=== PATIENT | male | born 1950 | race Caucasian/White ===

== ENCOUNTER 2018-08-16 18:58 | Emergency (ER) | payer MEDICARE, OTHER ==
[~2018-08-16] VITALS: Ht 172.7 cm; Wt 93.0 kg
[2018-08-16] MEDS ORDERED: AUGMENTIN875TAB PO (20:13)
[2018-08-16 20:30] VITALS: BP 134/78
== END 2018-08-16 20:30 | disposition home or self-care (01) ==
LOC: ED 18:58
DX: L03.032 Cellulitis of left toe (principal); S91.202A Unspecified open wound of left great toe with damage to nail, initial encounter

== ENCOUNTER 2022-05-16 16:32 | Observation (INO) | payer MEDICARE, OTHER ==
[2022-05-16] VITALS (20 sets, daily range): BP systolic 100–132; BP diastolic 54–91
[~2022-05-16] VITALS: Ht 172.7 cm; Wt 75.0 kg
[~2022-05-16 16:32] MED LIST: AUGMENTIN875TAB PO
[2022-05-16 17:15] LABS: HEMATOCRIT 46.3 % (39.0-50.0); IMMATURE GRANULOCYTES 0.3 % (0.0-5.0); MEAN CORPUSCULAR HGB 32.7 pG CALC (26.0-32.0); MEAN CORPUSCULAR HGB CONC 36.7 g/dL CAL (32.0-36.0); NEUT# 6.95 thou/uL (1.82-7.42); RED BLOOD COUNT 5.2 mill/uL (4.70-6.10); RED CELL DISTRI WIDTH 11.7 % (11.5-15.5)
[2022-05-16 17:39] LABS: ALBUMIN 4.6 g/dL (3.2-5.0); ALKALINE PHOSPHATASE 81 u/l (38-126); BILIRUBIN, TOTAL 1.2 mg/dL (0.0-1.4); BUN 24 mg/dL (8-23); BUN/CREATININE RATIO 23 (12-20 (CALC)); CARBON DIOXIDE 24 mmol/l (22-30); CREATININE 1.1 mg/dL (0.7-1.3); GFR FOR AFR.AMER. > 60 ML/MIN (>=60 (CALC)); GFR OTHER RACES > 60 ML/MIN (>=60 (CALC)); POTASSIUM 3.2 mmol/l (3.5-5.1); SGOT/AST 23 u/l (19-48); SODIUM 134 mmol/l (137-146); TOTAL PROTEIN 7.2 g/dL (6.3-8.2)
[2022-05-16 17:44] LABS: ANION GAP 28 (6-22 (CALC)); CHLORIDE 85 mmol/l (95-108)
[2022-05-17] VITALS (9 sets, daily range): BP systolic 88–143; BP diastolic 51–77
[2022-05-17 02:19] LABS: URINE BILIRUBIN - DIPSTICK MODERATE (NEGATIVE); URINE BLOOD DIPSTICK NEGATIVE (NEGATIVE); URINE COLOR YELLOW; URINE GLUCOSE - DIPSTICK 500 mg/dL (NEGATIVE); URINE KETONE >=80 mg/dL (NEGATIVE); URINE LEUK ESTERASE NEGATIVE (NEGATIVE); URINE NITRITE - DIPSTICK NEGATIVE (Negative); URINE PROTEIN - DIPSTICK TRACE mg/dL (NEG-TRACE); URINE SPECIFIC GRAVITY 1.025; URINE UROBILINOGEN - DIPSTICK 0.2 E.U./dL (0.2)
[2022-05-17 05:47] LABS: BUN 27 mg/dL (8-23); BUN/CREATININE RATIO 28 (12-20 (CALC)); CALCULATED LDLCHOLESTEROL 217 mg/dL (62-129 (CALC)); CHLORIDE 88 mmol/l (95-108); GFR FOR AFR.AMER. > 60 ML/MIN (>=60 (CALC)); GFR OTHER RACES > 60 ML/MIN (>=60 (CALC)); HDL CHOLESTEROL 33 mg/dL (>=40); MAGNESIUM 2.2 mg/dL (1.6-2.3); SODIUM 131 mmol/l (137-146); TOTAL CHOLESTEROL 278 mg/dl (0-199); TOTAL TRIGLYCERIDES 137 mg/dl (30-149); VLDL CHOLESTROL 27 mg/dl (0-38 (CALC))
[2022-05-17 05:51] LABS: ANION GAP 15 (6-22 (CALC)); CARBON DIOXIDE 31 mmol/l (22-30)
[2022-05-17] MEDS ORDERED: PROGESTERONE100 MG PO (09:54)
[2022-05-17] MEDS ORDERED: CYMBALTA60 MG PO (09:54)
[2022-05-17] MEDS ORDERED: FUROSEMIDE20 MG PO (09:55)
[2022-05-17] MEDS ORDERED: FINASTERIDE1 MG PO (09:55)
[2022-05-17] MEDS ORDERED: CLOPIDOGREL75 MG PO (09:55)
[2022-05-17] MEDS ORDERED: POT CHLORIDE10 ME5 PO (09:55)
[2022-05-17] MEDS ORDERED: ALDACTONE100 MG PO (09:56)
[2022-05-18 00:32] VITALS: BP 108/60
[2022-05-18 04:05] VITALS: BP 102/57
[2022-05-18 06:00] LABS: IMMATURE GRANULOCYTES 0.3 % (0.0-5.0); MEAN CELL VOLUME 91.9 fL CALC (80.0-100.0); MEAN CORPUSCULAR HGB 33.3 pG CALC (26.0-32.0); MEAN CORPUSCULAR HGB CONC 36.3 g/dL CAL (32.0-36.0); NEUT# 4.9 thou/uL (1.82-7.42); RED BLOOD COUNT 3.69 mill/uL (4.70-6.10); RED CELL DISTRI WIDTH 11.9 % (11.5-15.5)
[2022-05-18 06:01] LABS: HEMOGLOBIN 12.3 g/dl (14.0-18.0)
[2022-05-18 06:02] LABS: HEMATOCRIT 33.9 % (39.0-50.0)
[2022-05-18 06:07] LABS: ALBUMIN 3.3 g/dL (3.2-5.0); ALKALINE PHOSPHATASE 59 u/l (38-126); ANION GAP 9 (6-22 (CALC)); BILIRUBIN, TOTAL 0.4 mg/dL (0.0-1.4); BUN 13 mg/dL (8-23); BUN/CREATININE RATIO 21 (12-20 (CALC)); CALCULATED LDLCHOLESTEROL 162 mg/dL (62-129 (CALC)); CARBON DIOXIDE 32 mmol/l (22-30); CHLORIDE 96 mmol/l (95-108); CREATININE 0.6 mg/dL (0.7-1.3); GFR FOR AFR.AMER. > 60 ML/MIN (>=60 (CALC)); GFR OTHER RACES > 60 ML/MIN (>=60 (CALC)); HDL CHOLESTEROL 29 mg/dL (>=40); POTASSIUM 2.7 mmol/l (3.5-5.1); SGOT/AST 19 u/l (19-48); SODIUM 134 mmol/l (137-146); TOTAL CHOLESTEROL 211 mg/dl (0-199); TOTAL TRIGLYCERIDES 102 mg/dl (30-149); VLDL CHOLESTROL 20 mg/dl (0-38 (CALC))
[2022-05-18 11:31] VITALS: BP 115/61
[2022-05-18 11:35] VITALS: BP 111/63
[2022-05-18 11:40] VITALS: BP 91/57
[2022-05-18 12:54] VITALS: BP 151/68
[2022-05-18] MEDS ORDERED: LEVEMIR100 UNIT SC (13:08)
== END 2022-05-18 17:12 | disposition home health service (06) ==
LOC: ED 16:32 → ED-I 18:40 → ED 19:11 → MS2 19:12
PROVIDERS: Family Medicine; Nurse Practitioner; ADMIT Internal Medicine; ATTEND Internal Medicine
DX: E86.0 Dehydration (principal); E87.6 Hypokalemia; I10 Essential (primary) hypertension; I25.10 Atherosclerotic heart disease of native coronary artery without angina pectoris; E11.9 Type 2 diabetes mellitus without complications; F32.A Depression, unspecified; N40.0 Benign prostatic hyperplasia without lower urinary tract symptoms; F64.0 Transsexualism; Z79.890 Hormone replacement therapy; Z95.1 Presence of aortocoronary bypass graft; Z95.5 Presence of coronary angioplasty implant and graft; Z20.822 Contact with and (suspected) exposure to COVID-19
CPT/HCPCS: G0378; J1650

== ENCOUNTER 2022-06-08 06:03 | Emergency (ER) | payer MEDICARE, OTHER ==
[~2022-06-08] VITALS: Ht 172.7 cm; Wt 73.6 kg
[~2022-06-08 06:03] MED LIST changes: +ALDACTONE100 MG PO; +CLOPIDOGREL75 MG PO; +CYMBALTA60 MG PO; +FINASTERIDE1 MG PO; +FUROSEMIDE20 MG PO; +LEVEMIR100 UNIT SC; +POT CHLORIDE10 ME5 PO; +PROGESTERONE100 MG PO
[2022-06-08 06:54] LABS: HEMATOCRIT 36.4 % (39.0-50.0); IMMATURE GRANULOCYTES 0.3 % (0.0-5.0); MEAN CORPUSCULAR HGB 33.1 pG CALC (26.0-32.0); NEUT# 4.76 thou/uL (1.82-7.42); RED BLOOD COUNT 3.62 mill/uL (4.70-6.10); RED CELL DISTRI WIDTH 13.4 % (11.5-15.5)
[2022-06-08 07:05] LABS: ALBUMIN 3.3 g/dL (3.2-5.0); ALKALINE PHOSPHATASE 75 u/l (38-126); BUN 14 mg/dL (8-23); BUN/CREATININE RATIO 25 (12-20 (CALC)); CARBON DIOXIDE 31 mmol/l (22-30); CHLORIDE 102 mmol/l (95-108); CREATININE 0.6 mg/dL (0.7-1.3); GFR FOR AFR.AMER. > 60 ML/MIN (>=60 (CALC)); GFR OTHER RACES > 60 ML/MIN (>=60 (CALC)); TOTAL PROTEIN 5.9 g/dL (6.3-8.2)
[2022-06-08 07:08] LABS: MEAN CELL VOLUME 100.6 fL CALC (80.0-100.0)
[2022-06-08 07:09] LABS: ANION GAP 11 (6-22 (CALC)); BILIRUBIN, TOTAL 0.2 mg/dL (0.0-1.4); POTASSIUM 3.4 mmol/l (3.5-5.1); SGOT/AST 47 u/l (19-48); SODIUM 141 mmol/l (137-146)
[2022-06-08 07:18] LABS: MYOGLOBIN 46 ng/mL (0 - 121)
[2022-06-08 07:32] LABS: D-DIMER 0.46 mg/L (0.19-0.60)
[2022-06-08 07:45] LABS: URINE BILIRUBIN - DIPSTICK NEGATIVE (NEGATIVE); URINE BLOOD DIPSTICK NEGATIVE (NEGATIVE); URINE COLOR YELLOW; URINE GLUCOSE - DIPSTICK >=1000 mg/dL (NEGATIVE); URINE KETONE NEGATIVE (NEGATIVE); URINE LEUK ESTERASE NEGATIVE (NEGATIVE); URINE PH 6.5 (4.5-8.0); URINE PROTEIN - DIPSTICK NEGATIVE (NEG-TRACE); URINE UROBILINOGEN - DIPSTICK 0.2 E.U./dL (0.2)
[2022-06-08 07:47] LABS: URINE NITRITE - DIPSTICK NEGATIVE (Negative)
[2022-06-08 07:50] LABS: PROTHROMBIN TIME 10.1 SECONDS (9.0-12.5)
[2022-06-08] MEDS ORDERED: SPIRONOLACTONE50 MG PO (08:02)
[2022-06-08] MEDS ORDERED: CRESTOR40 MG PO (08:03)
[2022-06-08] MEDS ORDERED: LASIX 40 MG TAB40 MG PO (13:56)
[2022-06-08 14:24] VITALS: BP 140/85
== END 2022-06-08 14:25 | disposition left against medical advice (07) ==
LOC: ED 06:03
PROVIDERS: Family Medicine
DX: I21.4 Non-ST elevation (NSTEMI) myocardial infarction (principal); I50.9 Heart failure, unspecified; I25.10 Atherosclerotic heart disease of native coronary artery without angina pectoris; E11.9 Type 2 diabetes mellitus without complications; F32.A Depression, unspecified; T38.3X6A Underdosing of insulin and oral hypoglycemic [antidiabetic] drugs, initial encounter; T50.1X6A Underdosing of loop [high-ceiling] diuretics, initial encounter; Z91.128 Patient's intentional underdosing of medication regimen for other reason; Z53.29 Procedure and treatment not carried out because of patient's decision for other reasons; Z95.1 Presence of aortocoronary bypass graft; Z79.4 Long term (current) use of insulin; Z20.822 Contact with and (suspected) exposure to COVID-19
CPT/HCPCS: J1650

== ENCOUNTER 2023-01-20 20:11 | Emergency (ER) | payer MEDICARE, OTHER ==
[~2023-01-20] VITALS: Ht 172.7 cm; Wt 81.0 kg
[~2023-01-20 20:11] MED LIST changes: +CRESTOR40 MG PO; +LASIX 40 MG TAB40 MG PO; +SPIRONOLACTONE50 MG PO
[2023-01-20 21:02] LABS: BASO% 0.4 % (0-3); EOS% 1.9 % (0-8); IMMATURE GRANULOCYTES 0.1 % (0.0-5.0); LYMPH% 31.2 % (15-41); MEAN CELL VOLUME 95.4 fL CALC (80.0-100.0); MEAN CORPUSCULAR HGB 32.3 pG CALC (26.0-32.0); MEAN CORPUSCULAR HGB CONC 33.9 g/dL CAL (32.0-36.0); MONO% 9.4 % (2-13); NEUT# 3.88 thou/uL (1.82-7.42); RED BLOOD COUNT 4.98 mill/uL (4.70-6.10); RED CELL DISTRI WIDTH 12.3 % (11.5-15.5)
[2023-01-20 21:06] LABS: HEMATOCRIT 47.5 % (39.0-50.0); HEMOGLOBIN 16.1 g/dl (14.0-18.0)
[2023-01-20 21:15] LABS: ALKALINE PHOSPHATASE 75 u/l (38-126); BUN 19 mg/dL (8-23); BUN/CREATININE RATIO 25 (12-20 (CALC)); CHLORIDE 103 mmol/l (95-108); CREATININE 0.8 mg/dL (0.7-1.3); GFR FOR AFR.AMER. > 60 ML/MIN (>=60 (CALC)); GFR OTHER RACES > 60 ML/MIN (>=60 (CALC)); SGOT/AST 21 u/l (19-48); SODIUM 140 mmol/l (137-146)
[2023-01-20 21:24] LABS: ALBUMIN 4.5 g/dL (3.2-5.0); ANION GAP 22 (6-22 (CALC)); CARBON DIOXIDE 20 mmol/l (22-30); POTASSIUM 4.6 mmol/l (3.5-5.1); TOTAL PROTEIN 7.2 g/dL (6.3-8.2)
[2023-01-20 21:29] VITALS: BP 101/71
[2023-01-20 21:46] VITALS: BP 150/83
[2023-01-20 22:32] LABS: URINE BLOOD DIPSTICK NEGATIVE (NEGATIVE); URINE COLOR YELLOW; URINE GLUCOSE - DIPSTICK 100 mg/dL (NEGATIVE); URINE KETONE 15 mg/dL (NEGATIVE); URINE LEUK ESTERASE NEGATIVE (NEGATIVE); URINE PH 5.5 (4.5-8.0); URINE PROTEIN - DIPSTICK 30 mg/dL (NEG-TRACE); URINE SPECIFIC GRAVITY >=1.030
[2023-01-20 22:34] LABS: URINE NITRITE - DIPSTICK NEGATIVE (Negative)
[2023-01-20 22:39] LABS: URINE RBC 0-2 RBC/hpf (0-5); URINE SQUAMOUS EPITHELIAL CELL MODERATE EPI/hpf (0-FEW); URINE WBC 0-2 WBC/hpf (0-5)
[2023-01-21 00:24] VITALS: BP 150/83
== END 2023-01-21 00:39 | disposition home or self-care (01) ==
LOC: ED 20:11
PROVIDERS: Emergency Medicine
DX: R53.1 Weakness (principal); E11.9 Type 2 diabetes mellitus without complications; I25.10 Atherosclerotic heart disease of native coronary artery without angina pectoris; F32.A Depression, unspecified; Z95.1 Presence of aortocoronary bypass graft; Z95.5 Presence of coronary angioplasty implant and graft; Z79.4 Long term (current) use of insulin; Z59.48 Other specified lack of adequate food; Z20.822 Contact with and (suspected) exposure to COVID-19